=== PATIENT | male | born 1965 | race Hispanic/Latino ===

== ENCOUNTER 2016-05-07 21:38 | Emergency (ER) | payer SELFPAY ==
[2016-05-07 23:07] VITALS: BP 151/83
--- NOTE | 2016-05-10 00:59 | ED Elopement Review ---
ED Pt Elopement review - Results review Lab results: Laboratory Tests 05/07/16 23:10 POC Glucose 338 H - Call Back decision Pt Call Back Decision: No action required
== END 2016-05-08 04:20 | disposition left against medical advice (07) ==
LOC: ED 21:38
DX: L02.423 Furuncle of right upper limb (principal); Z53.21 Procedure and treatment not carried out due to patient leaving prior to being seen by health care provider
CPT/HCPCS: 82962